=== PATIENT | female | born 1990 | race Caucasian/White ===

== ENCOUNTER 2018-04-21 18:25 | Inpatient (IN) | payer OTHER ==
[2018-04-21] MEDS ORDERED: Lactated Ringer's 1,000 ML IV ONE (21:22)
[2018-04-21] MEDS ORDERED: Oxytocin 30 UNIT 30 UNITS/500 ML BAG IV ONE ×2 (21:22→22:52)
[2018-04-21 21:23] VITALS: BMI 25.9
--- NOTE | 2018-04-21 23:44 | OBADHP ---
Datetime: 04/21/2018 23:30 IP Chief Complaint Other: vaginal spotting Admit Comment, IP Provider: This is a private patient of Dr. Devorah Castellanos 27 y.o. , LMP 07/31/17, KEM 05/07 18, EGA 37w 5d c/o vaginal spotting on two occasions, upon wi ping after micturition, 1230 and 1600 hours. (+) AFM. Denies LOF, Ctx. (+) LBP, onset x 1 day. Last h ad sexual intercourse 5 months ago. care: Dr. 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 Denies STIs or abnormal Pap PMH: denies PSH: denies NKDA PNV , iron - each once a day Soc Hx: denies tobacco, illicit drug or EtOH use. 3-4 years. Unemployed Fam Hx: Mother alive 49 y.o. - hypothyroid. Father alive 49 y.o. no med issues P.E.: as above. WD in NAD. Awake, alert, oriented to time, person and place. Pleasant and cooperat chata. Accompanied by Assessment: 27 y.o. P0, 37w 5d, third trimester vaginal bleeding. Category 1 tracing. Case D/W Dr. Castellanos: will admit for delivery. Pitocin augmentation. This was D/W patient who agrees with plan. Pat ient is clinically stable. Plan: 1) Admit 2) NPO 3) IVFS 4) Continuous EFM 5) Admission labs 6) Pitocin 7) Anesthesia consult 8) Anticipate vaginal delivery - As per and D/W Dr. Castellanos Pelvic Type - PN: Adequate Extremities - PN: Normal Abdomen - PN: Normal Breast - PN: Not Done Lungs - PN: Normal Heart - PN: Normal Thyroid - PN: Not Done Neurologic - PN: Normal HEENT - PN: Normal General - PN: Normal Presentation-Admit: Vertex FHR - Baseline A Provider: 150 Membranes, Provider: Intact Contraction Comments Provider: 5-6 Comments, ACOG Physical Exam: Abdomen: Gravid. Soft. Non tender All other systems reviewed and are negative Gestation - Est Wks by US: 37w 5d IP Hx Assessment: The History has been Reviewed and is Current Vital Signs Provider: Reviewed; Within Normal Limits IP Chief Complaint: Other NICHD Variability Prov Fetus A: Moderate 6-25bpm NICHD Accel Fetus A IP Provider: 15X15 FHR Category Provider Fetus A: Category I NICHD Decel Fetus A IP Provider: None Dilatation, Provider: 2 Effacement, Provider: 40 Station, Provider: -3 Genitourinary Exam: Normal DTRs - PN: Normal EGA AdmitDate IP: 37.5 IP Adm Impression: Term, intrauterine ; No Active Labor IP Admit Plan: Admit to unit; Initiate labor augmentation protocol
[2018-04-22 00:07] LABS: BASO % 0.4 % (0.0-2.0); EOS # 0.1 K/uL (0.0-0.7); HEMOGLOBIN 13.2 g/dL (11.0-16.0); LYMPH # 1.8 K/uL (1.0-4.3); LYMPH % 18.7 % (20.0-40.0); MEAN CELL VOLUME 90.4 fL (81.0-99.0); MEAN CORPUSCULAR HEMOGLOBIN 30.7 pg (27.0-31.0); MEAN CORPUSCULAR HGB CONC 33.9 g/dL (33.0-37.0); MEAN PLATELET VOLUME 8.9 fL (7.2-11.7); MONO # 0.7 K/uL (0.0-0.8); MONO % 7.4 % (0.0-10.0); NEUT # 6.9 K/uL (1.8-7.0); NEUT % 72.5 % (50.0-75.0); RBC 4.29 Mil/uL (3.80-5.20); RED CELL DISTRIBUTION WIDTH 12.3 % (11.5-14.5); WHITE BLOOD COUNT 9.5 K/uL (4.8-10.8)
[2018-04-22 00:09] LABS: SQUAMOUS EPITHIAL 1 /hpf (0-5); URINE BACTERIA OCC (<OCC); URINE BILIRUBIN NEGATIVE (NEGATIVE); URINE CLARITY Clear (Clear); URINE COLOR Straw (YELLOW); URINE GLUCOSE (UA) NORMAL (Normal); URINE LEUKOCYTE ESTERASE NEG Leu/uL (Negative); URINE PROTEIN NEGATIVE (NEGATIVE); URINE UROBILINOGEN NORMAL mg/dL (0.2-1.0)
[2018-04-22 00:16] LABS: URINE BLOOD TRACE (NEGATIVE)
[2018-04-22 00:51] LABS: ALBUMIN 3.6 g/dL (3.5-5.0); ALT/SGPT 19 U/L (9-52); AST/SGOT 23 U/L (14-36); BLOOD UREA NITROGEN 5 mg/dL (7-17); CALCIUM 8.9 mg/dl (8.6-10.4); GFR NON-AFRICAN AMERICAN > 60
[2018-04-22] MEDS ORDERED: Bupivacaine HCl/FentaNYL Cit 100 ML EPI ONE ×2 (04:12→10:46)
[2018-04-22] MEDS: Lactated Ringer's 1,000 ML IV SCH ×2 (05:30)
[2018-04-22] MEDS ORDERED: Lidocaine Hydrochloride 5 ML INJ ONE (07:48)
--- NOTE | 2018-04-22 13:34 | OBPN ---
Datetime: 04/22/2018 13:28 IP Progress Impression: Normal progression of labor IP Informed Consent Obtain: Vaginal Delivery IP Progress Plan: Continue present management Membranes, Provider: Ruptured Contraction Comments Provider: q 2- 3min FHR - Baseline A Provider: 150 Gestation - Est Wks by US: 37.6 Presentation-Admit: Vertex IP Progress Note Comment: pt seen and examine drpeorts pian controlled s/p pediural vss em; cat I toco; q 2- 3min a/p admitted for PROM fully labor start pushign anticiate NICHD Variability Prov Fetus A: Moderate 6-25bpm Dilatation, Provider: 10 Effacement, Provider: 100 Station, Provider: 1 Datetime: 04/21/2018 23:30 Vital Signs Provider: Reviewed; Within Normal Limits NICHD Accel Fetus A IP Provider: 15X15 FHR Category Provider Fetus A: Category I NICHD Decel Fetus A IP Provider: None
[2018-04-22] MEDS ORDERED: Oxycodone/Acetaminophen 5/325 mg Tab PO PRN (14:26)
[2018-04-22] MEDS ORDERED: Benzocaine/Menthol 20%-0.5% Topical Spray (60 ml) TOP PRN (14:26)
[2018-04-22] MEDS ORDERED: Sodium Bicarbonate (8.4%) 50 Meq Syringe ONE (15:09)
[2018-04-22 16:01] LABS: BASO # 0.1 K/uL (0.0-0.2); BASO % 0.2 % (0.0-2.0); HEMOGLOBIN 11.4 g/dL (11.0-16.0); LYMPH # 1.1 K/uL (1.0-4.3); LYMPH % 5.1 % (20.0-40.0); MEAN CELL VOLUME 89.6 fL (81.0-99.0); MEAN CORPUSCULAR HEMOGLOBIN 29.6 pg (27.0-31.0); MEAN CORPUSCULAR HGB CONC 33.1 g/dL (33.0-37.0); MEAN PLATELET VOLUME 8.9 fL (7.2-11.7); MONO # 1.2 K/uL (0.0-0.8); MONO % 5.8 % (0.0-10.0); NEUT # 19.3 K/uL (1.8-7.0); NEUT % 88.9 % (50.0-75.0); PLATELET COUNT 242 K/uL (130-400); RBC 3.86 Mil/uL (3.80-5.20); RED CELL DISTRIBUTION WIDTH 12.3 % (11.5-14.5); WHITE BLOOD COUNT 21.7 K/uL (4.8-10.8)
[2018-04-22] MEDS ORDERED: Oxycodone/Acetaminophen 5/325 mg Tab ONE (17:39)
[2018-04-22 17:51] LABS: BANDS 12 % (0-2); LYMPHOCYTE 5 % (20-40); MONOCYTE 1 % (0-10); NEUTROPHIL 82 % (50-75); TOTAL CELLS COUNTED 100
[2018-04-22 17:58] LABS: PLATELET ESTIMATE NORMAL (NORMAL)
[2018-04-22 18:26] LABS: BASO % 0.3 % (0.0-2.0); HEMOGLOBIN 10.9 g/dL (11.0-16.0); LYMPH # 1.1 K/uL (1.0-4.3); LYMPH % 5.8 % (20.0-40.0); MEAN CELL VOLUME 90.6 fL (81.0-99.0); MEAN CORPUSCULAR HEMOGLOBIN 31.2 pg (27.0-31.0); MEAN CORPUSCULAR HGB CONC 34.4 g/dL (33.0-37.0); MEAN PLATELET VOLUME 8.5 fL (7.2-11.7); MONO % 4.9 % (0.0-10.0); NEUT # 17.5 K/uL (1.8-7.0); NRBC % 0.1 % (0.0-2.0); RBC 3.5 Mil/uL (3.80-5.20); RED CELL DISTRIBUTION WIDTH 12.3 % (11.5-14.5); WHITE BLOOD COUNT 19.7 K/uL (4.8-10.8)
--- NOTE | 2018-04-22 22:41 | OBDS ---
DELIVERY PERSONNEL Delivery Doctor: Devorah Castellanos MD [employer] Operator: Terry Mari RN Anesthesiologist: Tonya Virk MD MATERNAL INFORMATION Delivery Anesthesia: Local; Epidural Medications in Delivery: methergine at 2pm 0.2mg IM Estimated Blood Loss (ml): 450 Placenta Cultured: No Maternal Complications: None Provider Comments: pt was fully dilated and ushing. verbacl consent given for right mediolateral eps tiomyu. atraumatic, spontaneous deliver yof head. no nuchal cord noted. atruamtic, sponatnoeu deliver y of anterio followed by poserio shoudler followed by delivery of body. both oral and nasal passage o f taz baby were bulb suctioned. umbilcial cord was clamped adn cut. baby hadned to mother on abdomen with rn assistance. cord blood adn cord gases colelted ans sent x 2. spontaneou delivery of intact pl acenta iwth membrnae. fundus firm. good hemosis. second degree perineal with right mediolateral epist iomy repiared iwth 2-3 and 3-0 chormic. Good hemostais, no complicatins live male ifnat cephalic presentation agapr 9,9 no complciaiotns LABOR SUMMARY EDC: 05/07/2018 00:00 No. Babies in Womb: 1 Attempted: No Labor Anesthesia: Epidural LABOR INFORMATION Reason for Induction: Not Applicable Onset of Labor: 04/21/2018 22:00 Complete Dilatation: 04/22/2018 11:00 Oxytocin: Augmentation Group B Beta Strep: Negative (Annotations: 04/18/2018) Antibiotics # of Doses: 0 Steroids Given: None Reason Steroids Not Administered: Not Applicable MEMBRANES Membranes Rupture Method: Artificial Rupture of Membranes: 04/21/2018 23:21 Length of Rupture (hrs): 14.60 Amniotic Fluid Color: Clear Amniotic Fluid Color: Clear Amniotic Fluid Color: Clear Amniotic Fluid Color: Clear Amniotic Fluid Color: Clear Amniotic Fluid Color: Clear Amniotic Fluid Color: Clear Amniotic Fluid Color: Clear Amniotic Fluid Color: Clear Amniotic Fluid Color: Clear Amniotic Fluid Color: Clear Amniotic Fluid Amount: Moderate Amniotic Fluid Amount: Moderate Amniotic Fluid Amount: Moderate Amniotic Fluid Amount: Moderate Amniotic Fluid Amount: Moderate Amniotic Fluid Amount: Moderate Amniotic Fluid Amount: Moderate Amniotic Fluid Amount: Moderate Amniotic Fluid Amount: Moderate Amniotic Fluid Amount: Moderate Amniotic Fluid Amount: Scant Amniotic Fluid Odor: Normal Amniotic Fluid Odor: Normal Amniotic Fluid Odor: Normal Amniotic Fluid Odor: Normal Amniotic Fluid Odor: Normal Amniotic Fluid Odor: Normal Amniotic Fluid Odor: Normal Amniotic Fluid Odor: Normal Amniotic Fluid Odor: Normal Amniotic Fluid Odor: Normal Amniotic Fluid Odor: Normal STAGES OF LABOR Stage 1 hrs: 13 Stage 1 min: 0 Stage 2 hrs: 2 Stage 2 min: 57 Stage 3 hrs: 0 Stage 3 min: 3 Total Time in Labor hrs: 16 Total Time in Labor min: 0 VAGINAL DELIVERY Episiotomy: Right Mediolateral Laceration Extension: Second Degree Laceration Type: Perineal Laceration Repair: Yes Initial Vag Sponge Count: 20 Final Vag Sponge Count: 20 Initial Vag Sharps Count: 2 Final Vag Sharps Count: 2 Sponge Count Correct: Yes Sharps Count Correct: Yes BABY A INFORMATION Delivery Date/Time: 04/22/2018 13:57 Method of Delivery: Vaginal Born in Route : No : N/A Forceps: N/A Vacuum Extraction: N/A Shoulder Dystocia : No SHOULDER DYSTOCIA BABY A Delivery Date/Time: 04/22/2018 13:57 PRESENTATION/POSITION BABY A Presentation: Cephalic Cephalic Presentation: Face Vertex Position: Right Occipital Posterior Breech Presentation: N/A PLACENTA INFORMATION BABY A Placenta Delivery Time : 04/22/2018 14:00 Placenta Method of Delivery: Spontaneous Placenta Status: Delivered SCORES BABY A Heart Rate 1 min: >100 bpm Resp Effort 1 min: Good Cry Reflex Irritability 1 min: Cough or Sneeze or Pulls Away Muscle Tone 1 min: Active Motion Color 1 min: Body [place], Extremities Blue Resuscitation Effort 1 min: Tactile Stimulation SCORE 1 MIN: 9 Heart Rate 5 min: >100 bpm Resp Effort 5 min: Good Cry Reflex Irritability 5 min: Cough or Sneeze or Pulls Away Muscle Tone 5 min: Active Motion Color 5 min: Body [place], Extremities Blue Resuscitation Effort 5 min: N/A SCORE 5 MIN: 9 INFANT INFORMATION BABY A Gestational Age at Delivery: 37.6 Gestational Status: Term Infant Outcome : Liveborn Infant Condition : Stable Infant Sex: Male IDENTIFICATION/MEDS BABY A ID Band Number: [id number] ID Band Location: Left Leg; Left Arm Sensor Applied: Yes Sensor Number: [id number] Sensor Location : Cord Clamp WEIGHT/LENGTH BABY A Infant Birthweight (gms): 2980 Infant Weight (lb): 6 Infant Weight (oz): 9 Length Inches: 20.50 Length cms: 52.1 CORD INFORMATION BABY A No. Cord Vessels: 3 Nuchal Cord : N/A Infant Cord pH Baby Venous: 7.25 Cord Blood Taken: Yes Suction: Mouth; Nose
--- NOTE | 2018-04-22 22:43 | OBDS ---
DELIVERY PERSONNEL Delivery Doctor: Devorah Castellanos MD Wildlife Management Professor: Terry Mari RN Anesthesiologist: Tonya Virk MD MATERNAL INFORMATION Delivery Anesthesia: Local; Epidural Medications in Delivery: methergine at 2pm 0.2mg IM Estimated Blood Loss (ml): 450 Placenta Cultured: No Maternal Complications: None Provider Comments: pt was fully dilated and ushing. verbacl consent given for right mediolateral eps tiomyu. atraumatic, spontaneous deliver yof head. no nuchal cord noted. atruamtic, sponatnoeu deliver y of anterio followed by poserio shoudler followed by delivery of body. both oral and nasal passage o f taz baby were bulb suctioned. umbilcial cord was clamped adn cut. baby hadned to mother on abdomen with rn assistance. cord blood adn cord gases colelted ans sent x 2. spontaneou delivery of intact pl acenta iwth membrnae. fundus firm. good hemosis. second degree perineal with right mediolateral epist iomy repiared iwth 2-3 and 3-0 chormic. Good hemostais, no complicatins live male ifnat cephalic presentation agapr 9,9 no complciaiotns LABOR SUMMARY EDC: 05/07/2018 00:00 No. Babies in Womb: 1 Attempted: No Labor Anesthesia: Epidural LABOR INFORMATION Reason for Induction: Not Applicable Onset of Labor: 04/21/2018 22:00 Complete Dilatation: 04/22/2018 11:00 Oxytocin: Augmentation Group B Beta Strep: Negative (Annotations: 04/18/2018) Antibiotics # of Doses: 0 Steroids Given: None Reason Steroids Not Administered: Not Applicable MEMBRANES Membranes Rupture Method: Artificial Rupture of Membranes: 04/21/2018 23:21 Length of Rupture (hrs): 14.60 Amniotic Fluid Color: Clear Amniotic Fluid Amount: Moderate Amniotic Fluid Odor: Normal STAGES OF LABOR Stage 1 hrs: 13 Stage 1 min: 0 Stage 2 hrs: 2 Stage 2 min: 57 Stage 3 hrs: 0 Stage 3 min: 3 Total Time in Labor hrs: 16 Total Time in Labor min: 0 VAGINAL DELIVERY Episiotomy: Right Mediolateral Laceration Extension: Second Degree Laceration Type: Perineal Laceration Repair: Yes Initial Vag Sponge Count: 20 Final Vag Sponge Count: 20 Initial Vag Sharps Count: 2 Final Vag Sharps Count: 2 Sponge Count Correct: Yes Sharps Count Correct: Yes BABY A INFORMATION Infant Delivery Date/Time: 04/22/2018 13:57 Method of Delivery: Vaginal Born in Route : No : N/A Forceps: N/A Vacuum Extraction: N/A Shoulder Dystocia : No SHOULDER DYSTOCIA BABY A Infant Delivery Date/Time: 04/22/2018 13:57 PRESENTATION/POSITION BABY A Presentation: Cephalic Cephalic Presentation: Face Vertex Position: Right Occipital Posterior Breech Presentation: N/A PLACENTA INFORMATION BABY A Placenta Delivery Time : 04/22/2018 14:00 Placenta Method of Delivery: Spontaneous Placenta Status: Delivered SCORES BABY A Heart Rate 1 min: >100 bpm Resp Effort 1 min: Good Cry Reflex Irritability 1 min: Cough or Sneeze or Pulls Away Muscle Tone 1 min: Active Motion Color 1 min: Body [place], Extremities Blue Resuscitation Effort 1 min: Tactile Stimulation SCORE 1 MIN: 9 Heart Rate 5 min: >100 bpm Resp Effort 5 min: Good Cry Reflex Irritability 5 min: Cough or Sneeze or Pulls Away Muscle Tone 5 min: Active Motion Color 5 min: Body [place], Extremities Blue Resuscitation Effort 5 min: N/A SCORE 5 MIN: 9 INFANT INFORMATION BABY A Gestational Age at Delivery: 37.6 Gestational Status: Term Infant Outcome : Liveborn Condition : Stable Infant Sex: Male IDENTIFICATION/MEDS BABY A ID Band Number: [id number] ID Band Location: Left Leg; Left Arm Sensor Applied: Yes Sensor Number: [id number] Sensor Location : Cord Clamp WEIGHT/LENGTH BABY A Infant Birthweight (gms): 2980 Weight (lb): 6 Weight (oz): 9 Infant Length Inches: 20.50 Length cms: 52.1 CORD INFORMATION BABY A No. Cord Vessels: 3 Nuchal Cord : N/A Infant Cord pH Baby Venous: 7.25 Cord Blood Taken: Yes Suction: Mouth; Nose
[2018-04-23 01:13] LABS: SQUAMOUS EPITHIAL < 1 /hpf (0-5); URINE BILIRUBIN NEGATIVE (NEGATIVE); URINE BLOOD 2+ (NEGATIVE); URINE COLOR Yellow (YELLOW); URINE GLUCOSE (UA) NORMAL (Normal); URINE LEUKOCYTE ESTERASE NEG Leu/uL (Negative); URINE PROTEIN NEGATIVE (NEGATIVE); URINE UROBILINOGEN NORMAL mg/dL (0.2-1.0)
[2018-04-23 01:26] LABS: URINE CLARITY Hazy (Clear)
[2018-04-23 09:11] LABS: BASO # 0.1 K/uL (0.0-0.2); BASO % 0.5 % (0.0-2.0); EOS % 0.2 % (0.0-4.0); HEMOGLOBIN 9.6 g/dL (11.0-16.0); LYMPH % 11.6 % (20.0-40.0); MEAN CELL VOLUME 90.5 fL (81.0-99.0); MEAN CORPUSCULAR HEMOGLOBIN 30.2 pg (27.0-31.0); MEAN CORPUSCULAR HGB CONC 33.4 g/dL (33.0-37.0); MEAN PLATELET VOLUME 8.7 fL (7.2-11.7); MONO # 1.2 K/uL (0.0-0.8); MONO % 6.7 % (0.0-10.0); NRBC % 0.1 % (0.0-2.0); RBC 3.17 Mil/uL (3.80-5.20); RED CELL DISTRIBUTION WIDTH 12.6 % (11.5-14.5); WHITE BLOOD COUNT 17.3 K/uL (4.8-10.8)
[2018-04-23] MEDS: Multiple Vitamins Tab PO SCH (10:10)
--- NOTE | 2018-04-23 12:40 | OBPPN ---
Datetime: 04/23/2018 12:35 PP Pain Prov: Within normal limits PP Nausea Prov: Denies PP Flatus Prov: Yes PP BM Prov: No PP Breasts Prov: Normal PP Heart Prov: Normal PP Lungs Prov: Normal PP Abdomen/Uterus Prov: Normal PP Lochia Prov: Normal PP Vulva/Perineum Prov: Normal PP CVA Tenderness Prov: Normal PP Extremities Prov: Normal PP C/S Incision Prov: Not Applicable PP Progress Prov: Normal PP Impression Prov: Normal progression PP Plan Prov: Continue present management PP Plan Other Prov: contine aldana PP Progress Note Prov: pt seen and examined and reports pain controlled with medication. pt ambulati ng, passing flatus, toerlated reguar diet, no fever, chills, nausea, vomiting. Pt deneis any dizynes , chest pain, sob. pt unable to vid sicne delivery. Intial straight cath of 2000cc, then placenmetn o f aldana cathether 1400cc VS see above PE GEN NAD AAO x 3 RESP: CTAB/l CVS: RRR,+S1/S2 ABD: Soft, NT/ND, +BS. no suprapbuic tendnernssno guarding no rebound tenderness no rigidity BACK : no cva b/l FUNDU: Firm, belwo level of umbilicus, non tender VE: minimal lochia, non fousl smelling, +Aldana draining LE: negative homans sign s/p ppd #1 with urinary retention conitnue aldana urolgy eval apprecaited pain mangment encourage breaest feedign adn ambaiotn am cbc, bmp Vital Signs Provider PP: Reviewed
--- NOTE | 2018-04-23 12:45 | OBDCSUM ---
Datetime: 04/23/2018 12:40 Discharged to, Provider: Home Follow up at, Provider: Dr Castellanos Disch Instr Activity: Normal activity Disch Instr Diet: Regular Discharge Instructions, Provider: Routine instructions given Discharge Diagnosis, Provider: Term Delivered Discharge Time: 04/23/2018 12:41 Follow up in weeks, Provider: 1-2 weeks Disch Referrals: None Contraception discussed, Prov: Yes Disch Activity Restrictions: No sexual activity; Nothing in vagina - [place], tampons, douche Discharge Comment, Provider: ramsey rubi in am urolgy f/u as informed Contraception after Delivery: Not Planning to Use
[2018-04-23 17:25] LABS: BASO % 0.2 % (0.0-2.0); EOS # 0.1 K/uL (0.0-0.7); EOS % 0.9 % (0.0-4.0); HEMOGLOBIN 8.6 g/dL (11.0-16.0); LYMPH % 12.7 % (20.0-40.0); MEAN CELL VOLUME 91.4 fL (81.0-99.0); MEAN CORPUSCULAR HEMOGLOBIN 30.2 pg (27.0-31.0); MEAN PLATELET VOLUME 8.6 fL (7.2-11.7); MONO # 1.2 K/uL (0.0-0.8); MONO % 7.5 % (0.0-10.0); NEUT # 12.2 K/uL (1.8-7.0); NEUT % 78.7 % (50.0-75.0); RBC 2.84 Mil/uL (3.80-5.20); RED CELL DISTRIBUTION WIDTH 12.4 % (11.5-14.5); WHITE BLOOD COUNT 15.5 K/uL (4.8-10.8)
[2018-04-23 17:45] LABS: BLOOD UREA NITROGEN 8 mg/dL (7-17); CALCIUM 8.5 mg/dl (8.6-10.4); GFR NON-AFRICAN AMERICAN > 60
[2018-04-24 08:50] LABS: BASO # 0.1 K/uL (0.0-0.2); BASO % 0.6 % (0.0-2.0); EOS # 0.4 K/uL (0.0-0.7); EOS % 3.2 % (0.0-4.0); HEMOGLOBIN 9.4 g/dL (11.0-16.0); LYMPH # 2.7 K/uL (1.0-4.3); LYMPH % 21.1 % (20.0-40.0); MEAN CELL VOLUME 90.2 fL (81.0-99.0); MEAN CORPUSCULAR HEMOGLOBIN 30.3 pg (27.0-31.0); MEAN CORPUSCULAR HGB CONC 33.6 g/dL (33.0-37.0); MEAN PLATELET VOLUME 8.5 fL (7.2-11.7); MONO # 0.7 K/uL (0.0-0.8); MONO % 5.1 % (0.0-10.0); NRBC % 0.1 % (0.0-2.0); RBC 3.1 Mil/uL (3.80-5.20); RED CELL DISTRIBUTION WIDTH 12.4 % (11.5-14.5); WHITE BLOOD COUNT 12.8 K/uL (4.8-10.8)
--- NOTE | 2018-04-24 09:54 | CP.PCM.CON ---
History of Present Illness - History of Present Illness History of Present Illness: Urology Consult: Dr. Camargo Pt is a 27y/o female who is from a normal vaginal delivery; Day 2. Urology has been consulted to evaluate the pt for urinary retention. Pt states that after her delivery she was having difficulty urinating and had to be straight cathed at which time about 2L of urine was obtained. Pt was given another trial of void, however after 8 hours she was still unable to urinate and a aldana catheter was inserted at that time. Pt states she has never had any issues with urinating prior to this incident. She denies any burning/itching while urinating, denies any other urinary complaints. Denies fevers/chills. PMHx: denies PSHx: denies SocialHx: denies smoking/EtOH/drugs NKDA Review of Systems - Review of Systems All systems: reviewed and no additional remarkable complaints except (as per HPI) Past Patient History - CARDIAC Hx Cardiac Disorders: No Hx Hypertension: No - PSYCHIATRIC Hx Depression: No Meds Allergies/Adverse Reactions: Allergies Allergy/AdvReac Type Severity Reaction Status Date / Time No Known Allergies Allergy Verified 04/21/18 21:22 - Medications Medications: Current Medications Benzocaine/Menthol (Dermoplast 20%-0.5%) 0 ml TOP Q6 PRN PRN Reason: Perineal Discomfort Last Admin: 04/23/18 01:26 Dose: 60 ml Ibuprofen (Motrin Tab) 600 mg PO Q6 PRN PRN Reason: Pain, Mild (1-3) Last Admin: 04/22/18 15:30 Dose: 600 mg Multivitamins (Hexavitamin) 1 tab PO DAILY [facility] Last Admin: 04/23/18 10:10 Dose: 1 tab Oxycodone/Acetaminophen (Percocet 5/325 Mg Tab) 1 tab PO Q4H PRN PRN Reason: Pain, moderate (4-7) Stop: 04/25/18 14:27 Last Admin: 04/22/18 17:32 Dose: 1 tab Sennosides (Senokot Tab) 17.2 mg PO DAILY [facility] Last Admin: 04/23/18 10:10 Dose: 17.2 mg Physical Exam - Constitutional Appears: Well, No Acute Distress - Head Exam Head Exam: ATRAUMATIC, NORMOCEPHALIC - Eye Exam Eye Exam: Normal appearance - ENT Exam ENT Exam: Mucous Membranes Moist - Respiratory Exam Respiratory Exam: NORMAL BREATHING PATTERN - Cardiovascular Exam Cardiovascular Exam: RRR - GI/Abdominal Exam GI & Abdominal Exam: Soft - Exam Additional comments: indwelling aldana catheter in place with clear urine in bag - Neurological Exam Neurological exam: Alert, Oriented x3 - Skin Skin Exam: Dry, Warm Results - Vital Signs Recent Vital Signs: Last Vital Signs Temp 97 F L 04/24/18 08:00 Pulse 100 H 04/24/18 08:00 Resp 18 04/24/18 08:00 BP 108/69 04/24/18 08:00 Pulse Ox 100 04/24/18 08:00 - Labs Result Diagrams: 04/24/18 08:35 04/23/18 17:18 Labs: Laboratory Results - last 24 hr 04/23/18 04/23/18 04/24/18 17:18 17:18 08:35 WBC 15.5 H 12.8 H RBC 2.84 L 3.10 L Hgb 8.6 L 9.4 L Hct 25.9 L 28.0 L MCV 91.4 90.2 MCH 30.2 30.3 MCHC 33.0 33.6 RDW 12.4 12.4 Plt Count 219 247 MPV 8.6 8.5 Neut % (Auto) 78.7 H 70.0 Lymph % (Auto) 12.7 L 21.1 [place] % (Auto) 7.5 5.1 Eos % (Auto) 0.9 3.2 Baso % (Auto) 0.2 0.6 Neut # (Auto) 12.2 H 9.0 H Lymph # (Auto) 2.0 2.7 [place] # (Auto) 1.2 H 0.7 Eos # (Auto) 0.1 0.4 Baso # (Auto) 0.0 0.1 Sodium 135 Potassium 3.8 Chloride 101 Carbon Dioxide 28 Anion Gap 10 BUN 8 Creatinine 0.4 L Est GFR ( Amer) > 60 Est GFR (Non-Af Amer) > 60 Random Glucose 94 Calcium 8.5 L Assessment & Plan - Assessment and Plan (Free Text) Assessment: 27F with urinary retention Plan: - pt can be discharged with aldana leg bag - f/u in the office next week for evaluation - plan d/w Dr. Mary Jo Austin, PGY-3
[2018-04-24] MEDS: Multiple Vitamins Tab PO SCH (10:47)
[2018-04-25 06:09] VITALS: BP 104/69; PULSE 106; RESP 20; TEMP 98.2; O2SAT 99
--- NOTE | 2018-04-25 07:54 | OBPPN ---
Datetime: 04/24/2018 17:52 PP Breasts Prov: Not Done PP Heart Prov: Normal PP Lungs Prov: Normal PP Abdomen/Uterus Prov: Normal PP Lochia Prov: Normal PP Vulva/Perineum Prov: Normal PP CVA Tenderness Prov: Normal PP Extremities Prov: Normal PP Impression Prov: Normal progression PP Plan Prov: Discharge PP Impression Other Prov: Urinary retention Datetime: 04/24/2018 09:35 PP Pain Prov: Within normal limits PP Nausea Prov: Denies PP Comments Phys Exam Prov: PPD # 2 S/P Urinary Retention and aldana in place Urinary output 500 in 2 hours after encouraged to increase po water intake Awaiting for Urologist consultation Otherwise no complaints and ready to go home without problems Hope to discharge home today PP Progress Note Prov: PPD # 2 S/P Urinary Retention and aldana in place Urinary output 500 in 2 hours after encouraged to increase po water intake Awaiting for Urologist consultation Otherwise no complaints and ready to go home without problems Hope to discharge home today IP PP Procedures: None Vital Signs Provider PP: Reviewed; Within Normal Limits
--- NOTE | 2018-04-27 07:35 | CON ---
ATTENDING UROLOGIST: ORLANDO WHEELER MD DATE: 04/24/2018 1) EMERGENCY CONSULTATION 2) LIMITED PELVIC ULTRASOUND 3) DUBOIS INSERTION (indwelling) 4) CYSTOMETROGRAM The patient is a 27-year-old woman who presented to [facility] with an emergent delivery (26wks) which was was performed VIA a vaginal delivery. The patient unfortunately post delivery went to acute urinary retention. A Dubois catheter was placed and she has failed two voiding trials. I was called after the second void trial failure. I examined her at the bedside in the presence of her and her female family member and felt that her bladder on palpation was well above the umbilicus to prove this as the patient had really recently given and the uterus sometimes is confused with the bladder. I performed a bedside ultrasound, which demonstrated a capacious and fully distended bladder, measuring a 11.86 cm x 12.02 cm x 7.2 cm for a calculated volume of 533 mL. The bladder thickness was 0.68 cm. Left ureteral jet was identified on color Doppler, and a right ureteral jet was not identified despite approximately 15 minutes of observing the base of the bladder. At this patient, we instructed the patient to void. The patient voided a negligible amount, and her postvoid measurements of her bladder were 11 cm x 8 cm x 10 cm for a calculated residual volume of 457 mL. This constitutes 85% residual volume. I then preformed cystometrogram and was unable to elicit a bladder contraction despiyte filing the bladder with 1500cc under gravity. Bladder compliance was not decreased. No unstable detrusor contractions were observed. Given these findings a diagnosis of neurogenic bladder was made. I placed a Dubois catheter per urethra and have the patient go home with a large catheter. To follow up with me in the office in the next 10 to 14 days for an additional void trial as the patient's bladder is currently neurogenic. DIAGNOSIS: Urinary retention secondary to neurogenic bladder Orlando Wheeler M.D. MTDD
== END 2018-04-24 22:00 | disposition home or self-care (01) | DRG 806 ==
LOC: C.EROB 18:25 → C.4D 21:10 → C.4N 04-22 20:00 → C.4M 04-23 14:58
PROVIDERS: ADMIT Obstetrics & Gynecology; ATTEND Obstetrics & Gynecology
PROC: 10E0XZZ Delivery of Products of Conception, External Approach (ICD-10-PCS; principal; 2018-04-22)
PROC: 0KQM0ZZ Repair Perineum Muscle, Open Approach (ICD-10-PCS; 2018-04-22)
PROC: 0W8NXZZ Division of Female Perineum, External Approach (ICD-10-PCS; 2018-04-22)
DX: O70.1 Second degree perineal laceration during delivery (principal); O23.43 Unspecified infection of urinary tract in pregnancy, third trimester; Z37.0 Single live birth; N31.9 Neuromuscular dysfunction of bladder, unspecified; O99.02 Anemia complicating childbirth; Z3A.37 37 weeks gestation of pregnancy